=== PATIENT | female | born 1970 | race Two or more races ===

== ENCOUNTER 2018-03-02 15:02 | Outpatient (CLI) | payer OTHER | END 2018-03-02 15:19 | disposition home or self-care (01) | LOC: MAMO-SONO 15:02 | DX: Z12.31 Encounter for screening mammogram for malignant neoplasm of breast (principal); N60.01 Solitary cyst of right breast; N60.02 Solitary cyst of left breast; C73 Malignant neoplasm of thyroid gland ==

== ENCOUNTER → 2018-12-21 | Outpatient (CLI) | payer OTHER | END | disposition home or self-care (01) | LOC: NUCLEAR 11:26 | DX: M81.0 Age-related osteoporosis without current pathological fracture (principal) ==

== ENCOUNTER 2020-11-16 06:51 | Day surgery (SDC) | payer OTHER | END 2020-11-16 10:55 | disposition home or self-care (01) | LOC: AMB-ENDOS 06:51 | PROVIDERS: ATTEND Surgery | DX: K62.89 Other specified diseases of anus and rectum (principal); Z20.822 Contact with and (suspected) exposure to COVID-19 ==

== ENCOUNTER 2025-07-15 10:12 | Outpatient (CLI) | payer OTHER | END 2025-07-15 10:13 | disposition home or self-care (01) | LOC: NUCLEAR 10:12 | PROVIDERS: ATTEND Internal Medicine Sports Medicine | DX: I87.2 Venous insufficiency (chronic) (peripheral) (principal) ==